=== PATIENT | female | born 1995 | race Caucasian/White ===

== ENCOUNTER 2023-11-14 09:13 | Outpatient (CLI) | payer OTHER ==
[2023-11-14 10:17] LABS: THYROID STIMULATING HORMONE 1.09 uIU/mL (0.34-5.60)
[2023-11-14 10:23] LABS: PROLACTIN 14.61 ng/mL
== END 2023-11-14 09:14 | disposition home or self-care (01) ==
LOC: LAB 09:13
PROVIDERS: ATTEND Obstetrics & Gynecology
DX: O92.6 Galactorrhea (principal)
CPT/HCPCS: 36415; 84146; 84443